=== PATIENT | female | born 1970 | race Caucasian/White ===

== ENCOUNTER 2017-09-23 20:23 | Emergency (ER) | payer OTHER ==
[~2017-09-23] VITALS: Ht 157.5 cm; Wt 51.7 kg
[~2017-09-23 20:23] MED LIST: CYCL10 PO; DIPH50 PO; ESTR1 PO; MICO2TCA TOP; Norco 5-325 Ta1 EACH PO; OXYACE5T PO; RANI150 PO
[2017-09-23] MEDS ORDERED: HYDR10 PO (21:36)
[2017-09-23] MEDS ORDERED: PROG100 PO (21:36)
[2017-09-23] MEDS ORDERED: ZAFI20 PO (21:37)
[2017-09-23] MEDS ORDERED: DOXEPIN HCL45 GM TOP (21:47)
[2017-09-23] MEDS ORDERED: Prednisone20 MG PO (21:47)
== END 2017-09-23 22:00 | disposition home or self-care (01) ==
LOC: ER 20:23
DX: L50.9 Urticaria, unspecified (principal); Z88.8 Allergy status to other drugs, medicaments and biological substances; Z79.899 Other long term (current) drug therapy; Z79.52 Long term (current) use of systemic steroids
CPT/HCPCS: 96372; 99283; J1100